=== PATIENT | male | born 1955 | race African-American/Black ===

== ENCOUNTER → 2016-08-08 | Outpatient (CLI) | payer BC ==
[2016-08-08 08:01] LABS: BASOPHILS % 1.1 % (0.0-2.0); EOSINOPHILS % 3.3 % (0.0-5.0); HEMATOCRIT. 36.8 % (42.0-52.0); HEMOGLOBIN. 12.1 g/dL (14.0-18.0); LYMPHOCYTES % 45.2 % (20.0-50.0); MEAN CORPUSCULAR HEMOGLOBIN 28.8 pg (28.0-32.0); MEAN CORPUSCULAR HGB CONC 32.9 g/dL (31.0-37.0); MEAN CORPUSCULAR VOLUME 87.6 fL (80.0-94.0); MEAN PLATELET VOLUME 9.8 fl (7.4-10.4); MONOCYTES % 10.2 % (2.0-8.0); NEUTROPHILS % 40.2 % (40.0-76.0); PLATELET 181 x1000/uL (130-400); RED BLOOD CELL COUNT 4.21 mill/uL (4.7-6.1); RED CELL DISTRIBUTION WIDTH 15.7 % (11.6-14.6); WHITE BLOOD COUNT 5.9 x1000/uL (4.5-11.0)
[2016-08-08 08:16] LABS: CLARITY URINE TURBID (CLEAR); COLOR URINE YELLOW (YELLOW); GLUCOSE URINE NEGATIVE (NEGATIVE); KETONES URINE NEGATIVE (NEGATIVE); LEUKOCYTE ESTERASE URINE NEGATIVE (NEGATIVE); NITRITE URINE NEGATIVE (NEGATIVE); OCCULT BLOOD URINE NEGATIVE (NEGATIVE); PROTEIN URINE NEGATIVE (NEGATIVE); SPECIFIC GRAVITY URINE 1.022 (1.005-1.030)
[2016-08-08 08:24] LABS: ALANINE AMINOTRANSFERASE 21 IU/L (13-61); ALBUMIN 3.4 g/dL (3.4-5.0); ANION GAP 9; CALCIUM 8.8 mg/dL (8.5-10.1); CARBON DIOXIDE 30 mEq/L (21-32); CHLORIDE 108 mEq/L (98-107); HDL CHOLESTEROL 72 mg/dL (40-59); INDEX HEMOLYSI 1 (1-3); INDEX ICTERIC 1 (1-4); INDEX LIPEMIC 1 (1-3); LDL CHOLESTEROL 109 mg/dL (5-100); T4 FREE 0.84 ng/dL (0.76-1.46); TRIGLYCERIDE 73 mg/dL (0-150); UREA NITROGEN BLOOD 13 mg/dL (7-21); eGFR > 60 mL/min (>60)
[2016-08-08 08:33] LABS: WBC URINE 0-2 /hpf (0-2)
[2016-08-08 08:42] LABS: RBC URINE NONE SEEN /hpf (0-2)
[2016-08-08 08:44] LABS: AMORPHOUS SEDIMENT URINE 1+ /lpf; BACTERIA URINE 1+; SQUAMOUS EPITHELIAL CELL URINE NONE SEEN /lpf (RARE/1+)
[2016-08-09 10:12] LABS: % FREE PSA 16.8 % (.); PROSTATE SPECIFIC AG TOTAL 2.8 ng/mL (0.0-4.0); PSA FREE 0.47 ng/mL
== END | disposition home or self-care (01) ==
LOC: LAB 07:26
DX: E11.9 Type 2 diabetes mellitus without complications (principal); E03.9 Hypothyroidism, unspecified; E78.00 Pure hypercholesterolemia, unspecified; N39.0 Urinary tract infection, site not specified; D53.9 Nutritional anemia, unspecified
CPT/HCPCS: 36415; 80053; 80061; 81001; 84153; 84154; 84439; 84443; 85025

== ENCOUNTER 2018-04-04 05:10 | Emergency (ER) | payer BC ==
[~2018-04-04] VITALS: Ht 180.3 cm; Wt 100.0 kg
[2018-04-04 06:01] LABS: BASOPHILS % 0.9 % (0.0-2.0); EOSINOPHILS % 3.2 % (0.0-5.0); HEMATOCRIT. 36.6 % (42.0-52.0); HEMOGLOBIN. 11.8 g/dL (14.0-18.0); LYMPHOCYTES % 34.4 % (20.0-50.0); MEAN CORPUSCULAR HEMOGLOBIN 28.2 pg (28.0-32.0); MEAN CORPUSCULAR VOLUME 87.6 fL (80.0-94.0); MEAN PLATELET VOLUME 9.1 fl (7.4-10.4); NEUTROPHILS % 51.5 % (40.0-76.0); PLATELET 210 x1000/uL (130-400); RED BLOOD CELL COUNT 4.18 mill/uL (4.7-6.1)
[2018-04-04 06:02] LABS: CHLORIDE 106 mEq/L (98-107)
[2018-04-04] MEDS ORDERED: IOHEXOL-350 100 ML BOTTLE ONE (09:16)
[2018-04-04 10:38] VITALS: BP 116/68
== END 2018-04-04 10:41 | disposition home or self-care (01) ==
LOC: ER 05:10
DX: R06.00 Dyspnea, unspecified (principal); Z87.891 Personal history of nicotine dependence
CPT/HCPCS: 36415; 71045; 71275; 80053; 83880; 84484; 85025; 85379; 93005; 99284; Q9967

== ENCOUNTER 2023-02-14 13:00 | Emergency (ER) | payer OTHER, MEDICAID ==
[~2023-02-14] VITALS: Ht 182.9 cm; Wt 120.0 kg
[2023-02-14 13:19] VITALS: BP 134/78; PULSE 101; RESP 18; TEMP 98.2; O2SAT 94
[2023-02-14] MEDS ORDERED: SULF1TAB48 MT (14:37)
== END 2023-02-14 15:50 | disposition home or self-care (01) ==
LOC: ER 13:00
DX: M70.22 Olecranon bursitis, left elbow (principal)
CPT/HCPCS: 73080; 99283